=== PATIENT | female | born 1970 | race Caucasian/White ===

== ENCOUNTER 2017-08-11 09:47 | Emergency (ER) | payer OTHER ==
[~2017-08-11] VITALS: Ht 160 cm; Wt 64.5 kg
[2017-08-11] MEDS ORDERED: GEMF600T3 PO (09:59)
[2017-08-11 12:16] VITALS: BP 106/51
== END 2017-08-11 12:31 | disposition home or self-care (01) ==
LOC: EMS 09:48
DX: B34.9 Viral infection, unspecified (principal); J02.9 Acute pharyngitis, unspecified; R19.7 Diarrhea, unspecified; E78.00 Pure hypercholesterolemia, unspecified
CPT/HCPCS: 99283

== ENCOUNTER 2018-04-22 10:15 | Emergency (ER) | payer OTHER ==
[~2018-04-22] VITALS: Ht 160 cm; Wt 66.8 kg
[~2018-04-22 10:15] MED LIST: GEMF600T5 PO
[2018-04-22 10:20] VITALS: BP 137/80
[2018-04-22] MEDS ORDERED: PERTUSS(ACELL),DIPH,TET VAC/PF 0.5 ML VIAL IM ONE (10:45)
== END 2018-04-22 10:52 | disposition home or self-care (01) ==
LOC: EMS 10:16
DX: S91.332A Puncture wound without foreign body, left foot, initial encounter (principal); E78.00 Pure hypercholesterolemia, unspecified; W53.01XA Bitten by mouse, initial encounter; Y93.89 Activity, other specified; Y92.89 Other specified places as the place of occurrence of the external cause; Y99.8 Other external cause status
CPT/HCPCS: 90471; 90715; 99283

== ENCOUNTER 2018-11-27 19:51 | Emergency (ER) | payer OTHER ==
[~2018-11-27] VITALS: Ht 160 cm; Wt 67.3 kg
[2018-11-27] MEDS ORDERED: SULF1TAB3 PO (20:01)
[2018-11-27] MEDS ORDERED: TERB250 PO (20:01)
[2018-11-27 20:47] VITALS: BP 125/79
[2018-11-27] MEDS ORDERED: AMOXICILLIN TRIHYDRATE 250 MG CAPSULE PO ONE (21:00)
[2018-11-27] MEDS ORDERED: ACETAMINOPHEN 325 MG TABLET PO ONE (21:00)
== END 2018-11-27 21:30 | disposition home or self-care (01) ==
LOC: EMS 19:51
DX: H66.91 Otitis media, unspecified, right ear (principal); J06.9 Acute upper respiratory infection, unspecified; E78.00 Pure hypercholesterolemia, unspecified